=== PATIENT | male | born 1960 | race Caucasian/White ===

== ENCOUNTER → 2024-12-02 | Outpatient (CLI) | payer BC, SELFPAY ==
[2024-12-02 09:38] LABS: Collection Type, Urine Clean Catch
[2024-12-02 10:25] LABS: Basophils % (Auto) 0 % (0-2.5); Eosinophils # (Auto) 0.1 Thou/mm3 (0.0-0.5); Eosinophils % (Auto) 2 % (0-10); Hematocrit 44.8 % (41.0-53.0); Hemoglobin 14.6 g/dL (13.5-16.0); Immature Granulocytes % (Auto) 0 % (0-0); Immature Granulocytes Auto 0.01 Thou/mm3 (0.00-0.00); Lymphocytes # (Auto) 1.1 Thou/mm3 (1.0-4.8); Lymphocytes % (Auto) 17 % (10-50); Mean Corpuscular HGB Conc 32.6 g/dl (31.0-37.0); Mean Corpuscular Hemoglobin 29.1 pg (25.0-35.0); Mean Corpuscular Volume 89 fL (80-100); Monocytes # (Auto) 0.7 Thou/mm3 (0.0-0.8); Monocytes % (Auto) 12 % (0-12); Neutrophils # (Auto) 4.2 Thou/mm3 (1.8-7.7); Neutrophils % (Auto) 68 % (37-80); Nucleated Red Blood Cell % 0 /100 WBC (0); Platelet Count 183 Thou/mm3 (140-440); RDW Standard Deviation 44.6 fL (35.1-43.9); Red Blood Count 5.02 Miln/mm3 (4.50-5.90); White Blood Count 6.1 Thou/mm3 (3.8-10.6)
[2024-12-02 10:32] LABS: Bilirubin,Urine Negative (Negative); Blood,Urine Negative (Negative); Clarity,Urine Clear (Clear/Hazy); Color,Urine Lt-Yellow (Lt Yel-Yel); Glucose, Urine Negative (Negative); Hyaline Casts,Urine < 1 /hpf (0-1); Ketones,Urine Negative (Negative); Leukocyte Esterase,Urine Negative (Negative); Nitrite,Urine Negative (Negative); PH,Urine 6.5 (5.0-7.0); Protein,Urine Negative (Neg - Trace); RBC,Urine 2 /hpf (0-3); Specific Gravity,Urine 1.012 (1.001-1.035); Squamous Epithelial Cell,Urine < 1 /hpf (0-5); Urobilinogen,Urine Negative mg/dL (0.0-1.0); WBC,Urine < 1 /hpf (0-5)
[2024-12-02 10:39] LABS: Glucose Estimated Average 100 mg/dL (80-131); Hemoglobin A1C 5.1 % Hgb (4.8-6.0)
[2024-12-02 10:51] LABS: Prostate Specific Antigen 0.67 ng/mL (0-4.00)
[2024-12-02 10:54] LABS: Alanine Aminotransferase 19 U/L (10-49); Albumin, Serum 4.5 gm/dL (3.4-4.8); Albumin/Globulin Ratio 1.8 (1.2-2.2); Alkaline Phosphatase 79 U/L (46-116); Anion Gap 7 (7-16); Aspartate Amino Transferase 24 U/L (0-34); BUN/Creatinine Ratio 13 Ratio (12-20); Bilirubin,Total 0.9 mg/dL (0.3-1.2); Blood Urea Nitrogen 17 mg/dL (9-23); Calcium 9.1 mg/dL (8.3-10.6); Calcium (Corrected) 9.1 mg/dL (8.5-10.1); Carbon Dioxide 27.9 mMol/L (20.0-31.0); Cardiac Risk Estimate 2.6 RATIO (4.0-6.7); Chloride 104 mMol/L (98-107); Cholesterol 119 mg/dL (132-200); Creatinine (Component) 1.3 mg/dL (0.6-1.3); Globulin 2.5 gm/dL (2.3-3.5); Glucose 90 mg/dL (74-106); HDL Cholesterol 46 mg/dL (40-60); LDL Cholesterol,Calculated 64 mg/dL (0-130); Osmolality,Calculated 279 (275-295); Potassium 4.7 mMol/L (3.4-5.1); Sodium 139 mMol/L (136-145); Thyroid Stimulating Hormone 2.01 uIU/mL (0.55-4.78); Triglycerides 45 mg/dL (30-150); Uric Acid 5.1 mg/dL (3.7-9.2); eGFR > 60 See Note
[2024-12-02 10:56] LABS: Vitamin B12 451 pg/mL (211-911); Vitamin D 25 Hydroxy Total 33.3 ng/mL (7.3-40.2)
== END | disposition home or self-care (01) ==
PROVIDERS: PCP Internal Medicine; Referring Provider Internal Medicine; Visit Provider Internal Medicine
DX: Z00.00 Encounter for general adult medical examination without abnormal findings (principal); I10 Essential (primary) hypertension; E78.5 Hyperlipidemia, unspecified; I48.91 Unspecified atrial fibrillation
CPT/HCPCS: 36415; 80053; 80061; 81001; 82306; 82607; 83036; 84153; 84443; 84550; 85025

== ENCOUNTER → 2025-04-26 | Outpatient (CLI) | payer BC, SELFPAY ==
[2025-04-26 10:39] LABS: Alanine Aminotransferase 19 U/L (10-49); Albumin, Serum 4.2 gm/dL (3.4-4.8); Albumin/Globulin Ratio 1.7 (1.2-2.2); Alkaline Phosphatase 78 U/L (46-116); Anion Gap 8 (7-16); Aspartate Amino Transferase 24 U/L (0-34); BUN/Creatinine Ratio 13 Ratio (12-20); Bilirubin,Total 1.1 mg/dL (0.3-1.2); Blood Urea Nitrogen 17 mg/dL (9-23); Calcium 8.9 mg/dL (8.3-10.6); Calcium (Corrected) 8.9 mg/dL (8.5-10.1); Carbon Dioxide 29.2 mMol/L (20.0-31.0); Cardiac Risk Estimate 2.7 RATIO (4.0-6.7); Chloride 108 mMol/L (98-107); Cholesterol 117 mg/dL (132-200); Creatinine (Component) 1.3 mg/dL (0.6-1.3); Globulin 2.5 gm/dL (2.3-3.5); Glucose 97 mg/dL (74-106); HDL Cholesterol 43 mg/dL (40-60); LDL Cholesterol,Calculated 63 mg/dL (0-130); Osmolality,Calculated 290 (275-295); Potassium 5.8 mMol/L (3.4-5.1); Sodium 145 mMol/L (136-145); Total Protein 6.7 gm/dL (5.7-8.2); Triglycerides 56 mg/dL (30-150); eGFR > 60 See Note
== END | disposition home or self-care (01) ==
LOC: COPL 09:30
PROVIDERS: PCP Internal Medicine; Referring Provider Internal Medicine; Visit Provider Internal Medicine
DX: I10 Essential (primary) hypertension (principal); E78.5 Hyperlipidemia, unspecified
CPT/HCPCS: 36415; 80053; 80061

== ENCOUNTER → 2025-05-08 | Outpatient (CLI) | payer BC, SELFPAY ==
[2025-05-08 10:38] LABS: Albumin, Serum 3.9 gm/dL (3.4-4.8); Anion Gap 9 (7-16); BUN/Creatinine Ratio 13 Ratio (12-20); Blood Urea Nitrogen 15 mg/dL (9-23); Calcium 8.6 mg/dL (8.3-10.6); Calcium (Corrected) 8.7 mg/dL (8.5-10.1); Carbon Dioxide 26.6 mMol/L (20.0-31.0); Chloride 105 mMol/L (98-107); Creatinine (Component) 1.2 mg/dL (0.6-1.3); Glucose 103 mg/dL (74-106); Osmolality,Calculated 282 (275-295); Phosphorous 2.3 mg/dL (2.4-5.1); Potassium 4.5 mMol/L (3.4-5.1); Sodium 141 mMol/L (136-145); eGFR > 60 See Note
== END | disposition home or self-care (01) ==
LOC: COPL 09:15
PROVIDERS: PCP Internal Medicine; Referring Provider Internal Medicine; Visit Provider Internal Medicine
DX: I10 Essential (primary) hypertension (principal)
CPT/HCPCS: 36415; 80069

== ENCOUNTER 2025-08-31 22:57 | Inpatient (IN) | payer BC, SELFPAY ==
[2025-08-31 22:58] VITALS: BMI 39.0
--- NOTE | 2025-08-31 23:05 | PC.NURSE ---
PT BROUGHT TO ER BY THROUGH IN FRONT OF ER, TRIAGE NURSE BROUGHT PT TO ROOM 3 RIGHT AWAY BECAUSE HIS HR IS LOW. NO C/O SOB, NO C/O CP, NO DIZZINESS, PT IS BEEN TAKING METOPROLOL.
--- NOTE | 2025-08-31 23:05 | EKG_ITS ---
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[id number] Requested By: ED Temporary Provider Order Number: [id number] Reading MD: ED Temporary Provider Measurements Intervals [place] Rate: 38 P: 8 [place]: 226 QRS: 15 QRSD: 107 T: 50 QT: 530 QTc: 422 Interpretive Statements SINUS BRADYCARDIA WITH FIRST DEGREE AV BLOCK WITH OCCASIONAL SUPRAVENTRICULAR PREMATURE COMPLEXES INCOMPLETE RIGHT BUNDLE BRANCH BLOCK [90+ ms QRS DURATION, TERMINAL R IN V1/V2, 40+ ms S IN I/aVL/V4/V5/V6] MINIMAL ST DEPRESSION [0.025+ mV ST DEPRESSION] CRITICAL TEST RESULT Compared to ECG 02/28/2024 13:37:35 First degree AV block now present Incomplete right bundle-branch block now present ST (T wave) deviation now present Sinus rhythm no longer present Intraventricular conduction delay no longer present /store/S0/[id number].pdf
[2025-08-31 23:08] VITALS: BP 135/58; PULSE 44; RESP 17; O2SAT 99
--- NOTE | 2025-08-31 23:24 | PD.EDARRY ---
ED Arrhythmia Palp. RME/HPI General Chief Complaint: Arrhythmia/Palpitations Stated Complaint: BRADYCARDIA Time Seen by Provider: 08/31/25 23:12 Arrival date/time: 08/31/25 22:57 Limitations: no limitations RME / HPI RME / HPI narrative: Dr. Mclean's Main ED Evaluation: 65yo male with a history of aFib presents to the ED for a chief complaint of low heart rate x 1999. Patient states he started feeling lightheaded at 1999, reporting he checked his HR and was noted to be in the 30s. Patient denies any chest pain, shortness of breath, cough, fever, chills, or any other associated symptoms. Patient takes metoprolol and recently started taking atenolol. Seed Analyst: Porfirio Related Data Home Medications ?Medication ?Instructions ?Recorded ?Confirmed metoprolol succinate 25 mg 25 mg PO QDAY 04/30/20 10/27/22 tablet,extended release 24 hr amiodarone 200 mg tablet 200 mg PO QDAY 07/04/21 10/27/22 furosemide 40 mg tablet 1 tab PO QDAY 06/23/22 10/27/22 peg 3350-electrolytes 236 240 ml PO Q10M 09/17/22 10/27/22 gram-22.74 gram-6.74 gram-5.86 gram solution (Golytely) Previous Rx's ?Medication ?Instructions ?Recorded apixaban 5 mg tablet (Eliquis) 5 mg PO BID #90 tabs 07/09/21 amoxicillin 875 mg-potassium 1 tab PO BID #14 tabs 01/10/23 clavulanate 125 mg tablet doxycycline hyclate 100 mg capsule 100 mg PO BID #14 caps 01/10/23 Allergies Allergy/AdvReac Type Severity Reaction Status Date / Time No Known Allergies Allergy Verified 08/31/25 23:00 Review of Systems Review of Systems Systems Reviewed: All systems reviewed, normal except as documented Past Medical History Past Medical History NEUROLOGIC: Negative Neurological Disorders, Cerebrovascular Accident, Seizures or Migraine CARDIAC: Positive Cardiac Disorders (Pt. had a ablasion done a few years ago, pericardium removed 2000.), Cardiac Arrhythmia, Atrial Fibrillation, Congestive Heart Failure, Cardiomyopathy, Edema, Pericarditis and Deep Vein Thrombosis; Negative Myocardial Infarction, Angina, Heart Murmur, Coronary Artery Disease, Atherosclerotic Heart Disease, Peripheral Vascular Disease, Hypercholesterolemia, Aneurysm, Congenital Heart Disease, Valvular Heart Disease, Rheumatic Fever, Cellulitis, Hypertension, Hypotension or Varicose Veins RESPIRATORY: Negative Chronic Obstructive Pulmonary Disease (COPD), Asthma or Sleep Apnea GASTROINTESTINAL: Positive Gastrointestinal Disorders and Hemorrhoids; Negative Hepatitis GENITOURINARY: Negative Genitourinary Disorders or Renal Disease REPRODUCTIVE: Negative Testicular Cancer MUSCULOSKELETAL: Negative Musculoskeletal Disorders or Carpal Tunnel Syndrome ENDOCRINE: Negative Endocrine Disorders, Diabetes Mellitus Type 1, Diabetes Mellitus Type 2, Hypoglycemia, Delmont's Syndrome, Vikas's Disease, Hyperthyroidism, Hypothyroidism, Parathyroid Disease, Pituitary Disease, Systemic Lupus Erythematosus, Syndrome of Inappropriate Antidiuretic Hormone (SIADH), Adrenal Disease or Graves' Disease HEMATOLOGIC: Positive Blood Disorders and Anemia; Negative Sickle Cell Disease OTHER HISTORY: Positive Hospitalization and Chicken Pox; Negative Autoimmune Disease, Down Syndrome, Developmental Delay, Shingles, Falls, Blood Transfusions, Anesthesia Reactions, Organ Transplant, MRSA, VRSA, Vancomycin-Resistant Enterococci, Cancer or Testicular Cancer Family History FAMILY HISTORY: Positive Family Cardiac Disorders and Family Surgery; Negative Family Psychiatric Problems, Family Respiratory Disorders, Family Gastrointestinal Problems, Family Cancer or Family Anesthesia Reaction Surgical History SURGICAL: Positive Cardiac Surgery and Open Heart Surgery; Negative Pacemaker, Endocrine Surgery, Thyroidectomy, Ear Surgery, Abdominal Surgery, Nephrectomy, Joint Replacement, Amputation, Open Reduction Internal Fixation, Arthroscopy, Neurologic Surgery, Brain Shunt, Vasectomy or Organ Transplant Social History SMOKING STATUS: Never smoker SECOND HAND EXPOSURE: No SUBSTANCE USE: does not use 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 Exam General Limitations: Present no limitations General appearance: Present alert and in no apparent distress Head Head exam: Present atraumatic Eye Eye exam: Present normal appearance, PERRL and EOMI ENT ENT exam: Present normal exam, normal oropharynx and mucous membranes moist Neck Neck exam: Present normal inspection, full ROM and trachea midline Chest Chest inspection: Present normal inspection, symmetric chest wall rise and other (well-healed midline chest scar) Respiratory Respiratory exam: Present normal lung sounds bilaterally Cardiovascular Cardiovascular exam: Present normal rhythm, bradycardia and normal heart sounds Abdominal Exam Abdominal exam: Present soft Extremities Exam Extremities exam: Present full ROM and other (2+ pitting edema up to the bilateral knees) Back Exam Back exam: Present normal inspection and full ROM Neurological Exam Neurological exam: Present alert, oriented X3 and CN II-XII intact Psychiatric Psychiatric exam: Present normal affect and normal mood Skin Skin exam: Present warm, dry, intact and normal color Course Quality Measures none Orders Category Date Time Status EKG (ED ONLY) *Do not use* NOW Care 08/31/25 23:05 Completed EKG (ED Only) Stat Exams 08/31/25 23:05 Draft BNP [B-Type Natriuretic Peptide] Stat Lab 08/31/25 23:10 Ordered CBC Stat Lab 08/31/25 23:10 Ordered Comprehensive Metabolic Panel Stat Lab 08/31/25 23:10 Ordered Troponin I Stat Lab 08/31/25 23:10 Ordered Vital Signs Vital signs: Vital Signs Pulse Rate 44 L 08/31/25 23:08 Respiratory Rate 17 08/31/25 23:08 Blood Pressure 135/58 H 08/31/25 23:08 Pulse Oximetry (%) 99 08/31/25 23:08 Oxygen Delivery Method Room Air 08/31/25 23:08 Arrhythmia/Palpitations MDM Narrative MDM Narrative:: Scribe Attestation: 08/31/25 Kinga Long am scribing for and in the presence of Dr. Mclean. 65-year-old male presenting to the emergency department on multiple meds to include amiodarone, Eliquis, beta-aparna which is a new medication that he started few weeks ago, spironolactone, and Lasix presenting with lightheadedness and noted that his heart rate was low at home in the 40s to 50s. The patient states that he has no chest pain and did not pass out. He did not overdose on any medications. The patient always has lower extremity swelling but is slightly improved from his baseline. Patient is meetly placed to a bed. EKG and rhythm strip is obtained. The patient is noted to be in first-degree heart block with a heart rate between 38 and 50. Otherwise the patient is not pale and not diaphoretic. He has got 2+ pitting edema bilateral lower extremities. Review of his medications is immediately done and I suspect that he possibly has bradycardia from multiple medications but is primarily from his atenolol since this is a new medication. Patient is noted to be in sinus bradycardia without any blocks. Patient also has bilateral lower extremity swelling but review of his labs does not show that he has got hide her kalemia and otherwise his H&H is stable at 12/38. Platelets are normal. Other electrolytes are normal BMP shows 136 which is slightly above normal but not worried about congestive heart failure at this time. His lungs are clear. Chest x-ray is reviewed interpreted by me. 0007-glucagon and Zofran is ordered. No change with glucagon but only 3 mg was given patient did have significant amount of nausea. At this time the patient otherwise is not having altered mental status, hypotension, and is not hemodynamically unstable and therefore no dopamine and or other temporary pacemaking is needed at this time. Suspect likely from multi medication causing his sinus bradycardia. The patient is not febrile and doubt sepsis. TSH is ordered to rule out thyroid disease. Recent blood pressure is 122/62, afebrile, 96% on room air. Potassium is 3.5. Patient data External records reviewed:: [facility] previous records (Per chart review, patient was seen here on 02/28/24 for chest pain.) Clinical information provided by:: patient Social determinants that could affect healthcare access:: none Patient has the following chronic illnesses:: aFib How is presenting disease/condition affected by chronic disease/condition?: uneffected by Evaluation data The following diagnostics were reviewed and interpreted by me:: lab results, radiology exam(s) and EKG tracing(s) Lab and/or radiology exams considered but not ordered:: none Interpretation Summary: CBC normal, CMP normal, Troponin normal, BNP 136. CXR shows cardiomegaly, CHF, increased vascular markings, right pleural effusion is better today compared to previous CXR done in 2021, according to my interpretation. EKG done at 2309, sinus bradycardia, rate of 38, 1st degree AV block, RBBB, MN interval: 226, according to my interpretation. Repeat EKG done at 0208, sinus bradycardia, rate of 37, MN: 221, QTc: 412, 1st degree AV block, RBBB, according to my interpretation. Medications / Prescriptions Medications or Prescriptions considered but not ordered:: none Medication administrations:: Glucagon 3mg IV, Zofran, Atropine 1mg IV Consultations Consultation(s) initiated? (list below): Yes Consultation #1 (Physician, Specialty, Details): Discussed case with the resident physician, attending Dr. Turcios from Hospitalist service regarding admission. Discussed patients ED course, exam findings, labs, and radiology results. The Hospitalist agrees to accept the patient for admission. Time: 02:18 Diagnosis Differential diagnosis arrhythmia/palpitations: other (sinus bradycardia, medication-induced bradycardia, heart block, IL, hyperkalemia, infection) Most likely diagnosis given after review of the tests above:: see clinical impression below Admission Indicated Admission indicated?: indicated Admission Request Was there a request for admission?: Yes Admission Attestation Admission request attestation: Discussed case with [] from Hospitalist service regarding admission. Discussed patients ED course, exam findings, labs, and radiology results. The Hospitalist [agrees,declines] to accept the patient for admission. Disposition Plan Disposition Plan: Admit Critical Care Time Critical Care Time Critical Care Time: Yes Total Critical Care Time (min.): 40 Attestation: The high probability of sudden, clinically significant deterioration in the patient?s condition required the highest level of my preparedness to intervene urgently. The services I provided to this patient were to treat and/or prevent clinically significant deterioration. Services included the following: chart data review, reviewing nursing notes and/or old charts, documentation time, service loss control consultant collaboration regarding findings and treatment options, medication orders and management, direct patient care, vital sign assessments and ordering, interpreting and reviewing diagnostic studies and lab tests. Aggregate critical care time includes only time during which I was engaged in work directly related to the patient?s care, as described above, whether at bedside or elsewhere in the Emergency Department. It did not include time spent performing other reported procedures or the services of residents, students, nurses or physician assistants. Discharge Plan Plan Patient Disposition: Admit Acute Care w/in Hospital Patient condition on transfer: Stable Prescriptions/Referrals Prescriptions/Med Rec: No Action peg 3350-electrolytes [Golytely] 236-22.74-6.74 -5.86 gram recon soln 240 ml PO Q10M Rx Instructions: until fecal effluent is clear furosemide 40 mg tablet 1 tab PO QDAY Patient Comments: TAKE 1 TABLET BY MOUTH EVERY DAY metoprolol succinate 25 mg Tablet Extended Release 24 Hr 25 mg PO QDAY amiodarone 200 mg Tablet 200 mg PO QDAY Eliquis 5 mg tablet 5 mg PO BID Qty: 90 0RF Rx Instructions: 10 mg twice a day for 7 days and then 5 mg tablet twice a day. Please see your primary care for refill. doxycycline hyclate 100 mg capsule 100 mg PO BID Qty: 14 0RF amoxicillin-pot clavulanate 875-125 mg tablet 1 tab PO BID Qty: 14 0RF Problem List Clinical Impression: Dizziness, Symptomatic bradycardia Patient/Caregiver Discharge Instructions Print Language: Frisian Stand Alone Forms: [employer]son Award Info., Patient Portal Info Letter
[2025-08-31 23:29] LABS: Basophils # (Auto) 0.0 Thou/mm3 (0.0-0.2); Basophils % (Auto) 0 % (0-2.5); Eosinophils # (Auto) 0.1 Thou/mm3 (0.0-0.5); Eosinophils % (Auto) 2 % (0-10); Hematocrit 38.7 % (41.0-53.0); Hemoglobin 12.3 g/dL (13.5-16.0); Immature Granulocytes Auto 0.01 Thou/mm3 (0.00-0.00); Lymphocytes # (Auto) 1.7 Thou/mm3 (1.0-4.8); Lymphocytes % (Auto) 19 % (10-50); Mean Corpuscular HGB Conc 31.8 g/dl (31.0-37.0); Mean Corpuscular Hemoglobin 28.2 pg (25.0-35.0); Mean Corpuscular Volume 89 fL (80-100); Monocytes # (Auto) 1.5 Thou/mm3 (0.0-0.8); Monocytes % (Auto) 18 % (0-12); Neutrophils # (Auto) 5.4 Thou/mm3 (1.8-7.7); Neutrophils % (Auto) 61 % (37-80); Nucleated Red Blood Cell # 0.00 Thou/mm3 (0.00-0.00); Nucleated Red Blood Cell % 0 /100 WBC (0); Platelet Count 189 Thou/mm3 (140-440); RDW Standard Deviation 43.8 fL (35.1-43.9); Red Blood Count 4.36 Miln/mm3 (4.50-5.90); White Blood Count 8.8 Thou/mm3 (3.8-10.6)
--- NOTE | 2025-08-31 23:29 | XR_ITS ---
Examination: AP chest single view Technique one AP portable upright chest single view Date and time: August 31, 2025 11:36 PM, comparison February 28, 2024 Indications: Chest pain lightheadedness atrial fibrillation Findings: Mild to moderate CHF Moderate enlargement cardiac contour, prominent vascular congestion with perihilar edema Again noted significant pleural disease right base Prominent osteopenia Impression: Mild to moderate CHF
[2025-08-31 23:31] VITALS: PULSE 44
[2025-08-31 23:34] VITALS: TEMP 37.3
[2025-08-31 23:49] LABS: B-Type Natriuretic Peptide 136 pg/mL (0-100)
[2025-08-31 23:51] LABS: Alanine Aminotransferase 22 U/L (10-49); Albumin, Serum 4.0 gm/dL (3.4-4.8); Albumin/Globulin Ratio 1.7 (1.2-2.2); Alkaline Phosphatase 79 U/L (46-116); Anion Gap 10 (7-16); Aspartate Amino Transferase 31 U/L (0-34); BUN/Creatinine Ratio 12 Ratio (12-20); Bilirubin,Total 0.6 mg/dL (0.3-1.2); Blood Urea Nitrogen 16 mg/dL (9-23); Calcium 9.0 mg/dL (8.3-10.6); Calcium (Corrected) 9.0 mg/dL (8.5-10.1); Carbon Dioxide 27.3 mMol/L (20.0-31.0); Chloride 107 mMol/L (98-107); Creatinine (Component) 1.3 mg/dL (0.6-1.3); Estimated Creatinine Clearance 77.9 mL/min (>60); Globulin 2.4 gm/dL (2.3-3.5); Glucose 106 mg/dL (74-106); Osmolality,Calculated 288 (275-295); Potassium 3.5 mMol/L (3.4-5.1); Sodium 144 mMol/L (136-145); Total Protein 6.4 gm/dL (5.7-8.2); Troponin I < 0.020 ng/mL (0.0-0.045); eGFR > 60 See Note
[2025-09-01] VITALS (12 sets, daily range): BP systolic 103–141; BP diastolic 41–69; PULSE 33–57; RESP 12–21; TEMP 36.1–36.8; O2SAT 95–98
[2025-09-01] MEDS: ONDANSETRON INJ 2 MG/ML INJ 2 ML 4 MG IVP (00:13)
--- NOTE | 2025-09-01 00:13 | PC.NURSE ---
DR. PENN ORDER ZAKOGAMendy TO GIVE.
[2025-09-01] MEDS: GLUCAGON INJ 1 MG VIAL 3 MG IVP (00:17)
--- NOTE | 2025-09-01 01:10 | PC.NURSE ---
DR. PENN NOTIFIED THAT GLUCOGAN NOT WORKING, PT HR STILL 31,NEW ORDER GIVEN AND CARRIED OUT.
[2025-09-01] MEDS: ATROPINE SULF INJ 0.1 MG/ML SYR 10 ML 1 MG IV (01:39)
--- NOTE | 2025-09-01 02:00 | PC.NURSE ---
INFORMED DR. LORENZO ABOUT ATROPINE DID NOT WORK, ORDER TO DO REPEAT EKG.
--- NOTE | 2025-09-01 02:03 | EKG_ITS ---
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[id number] Requested By: Alva Rodriguez Order Number: [id number] Reading MD: Alva Rodriguez Measurements Intervals [place] Rate: 43 P: [place]: QRS: 26 QRSD: 93 T: 55 QT: 518 QTc: 442 Interpretive Statements ATRIAL FIBRILLATION WITH SLOW VENTRICULAR RESPONSE POSSIBLE RIGHT VENTRICULAR CONDUCTION DELAY [RSR (QR) IN V1/V2] NONSPECIFIC T-WAVE ABNORMALITY PROLONGED QT INTERVAL Compared to ECG 08/31/2025 23:09:22 T-wave abnormality now present Prolonged QT interval now present Sinus bradycardia no longer present First degree AV block no longer present Incomplete right bundle-branch block no longer present ST (T wave) deviation no longer present /store/S0/[id number].pdf
[2025-09-01 02:48] LABS: Thyroid Stimulating Hormone 0.02 uIU/mL (0.55-4.78)
--- NOTE | 2025-09-01 02:54 | PD.RESHP ---
Documentation for date of: 09/01/25 [facility] History of Present Illness Chief complaint: Bradycardia History of present illness: 65-year-old male with past medical history of atrial fibrillation status post ablation, pericardiectomy, history of left lower extremity DVT on Eliquis who presented to the ED due to symptomatic bradycardia. Patient was sitting watching TV when he started feeling lightheaded, he ignored it for a couple hours but then he continued to feel lightheaded with some tunnel vision, nausea and checked his heart rate found to be in the low 30s. Patient states that his heart rate usually is around the 110s?115 was started on atenolol 50 mg a few months ago stated it did not affect him much and his heart rate continued to be in the 110s. He stopped the medication for about a week did not notice anything new. Restarted his atenolol again and then suddenly noticed his heart rate dropping down to the 30s today with associated lightheadedness, nausea and tunnel vision as well as some chest pressure and tightness. He does state he recently had echocardiogram and stress test done which showed normal ejection fraction and normal coronaries per the patient. At this time patient denies any fever, chills, shortness of breath, chest pain, chest pressure, abdominal pain, changes in urinary or bowel habits. Patient will be admitted for symptomatic sinus bradycardia. ED course: BP 135/58, HR 44, RR 17, saturating 99% on room air, labs show hemoglobin 12.3, CHEM panel unremarkable troponin is negative, BNP 136. First EKG shows sinus bradycardia with first-degree AV block. Subsequent EKGs show atrial fibrillation with slow ventricular response. Chest x-ray shows some heart failure pattern. In the ED patient received glucagon, atropine PMHx: As above SX Hx: Ablation, pericardiectomy, Social Hx: Denies alcohol, denies cigarette use, denies other substances including THC FH X: Unknown Review of Systems Review of Systems Systems Reviewed: All systems reviewed, normal except as documented Exam Vital Signs Temp Pulse Resp BP Pulse Ox O2 Del Method 99.1 F 36 L 17 123/62 96 Room Air 08/31/25 23:34 09/01/25 02:05 09/01/25 02:05 09/01/25 02:05 09/01/25 02:05 09/01/25 02:05 Narrative Exam Physical Exam GENERAL: NAD, AAOx3 HEENT: Moist mucosa. Eyes open, symmetrical, & clear CARDIO: Heart RRR, no obvious murmurs PULM: No noted coughing/dyspnea CTA B/L, no R/W/R GI: Abdomen soft, nondistended, no pain on palpation. BSx4 SKIN/MSK/EXT: Bilateral lower extremity swelling more prominent on the left lower extremity, bilateral lower extremity redness, no pain on palpation. Pedal pulses present B/L NEURO: AAOx3, no focal neuro deficits, able to move all 4 extremities Results: Labs 09/01/25 04:25 09/01/25 04:25 Labs: Short CBC 08/31/25 Range/Units 23:20 WBC 8.8 (3.8-10.6) Thou/mm3 Hgb 12.3 L (13.5-16.0) g/dL Hct 38.7 L (41.0-53.0) % Plt Count 189 (140-440) Thou/mm3 BMP 08/31/25 23:20 Sodium 144 Potassium 3.5 Chloride 107 Carbon Dioxide 27.3 BUN 16 Creatinine 1.3 Glucose 106 Calcium 9.0 Cardiac Enzymes 08/31/25 Range/Units 23:20 Troponin I < 0.020 (0.0-0.045) ng/mL Liver Function 08/31/25 Range/Units 23:20 Total Bilirubin 0.6 (0.3-1.2) mg/dL AST 31 (0-34) U/L ALT 22 (10-49) U/L Alkaline Phosphatase 79 (46-116) U/L Albumin 4.0 (3.4-4.8) gm/dL Quality Measures Quality Measures none Medications Home Medications and Allergies Home Medications ?Medication ?Instructions ?Recorded ?Confirmed ?Type metoprolol succinate 25 mg 25 mg PO QDAY 04/30/20 10/27/22 History tablet,extended release 24 hr amiodarone 200 mg tablet 200 mg PO QDAY 07/04/21 10/27/22 History furosemide 40 mg tablet 1 tab PO QDAY 06/23/22 10/27/22 History peg 3350-electrolytes 236 240 ml PO Q10M 09/17/22 10/27/22 History gram-22.74 gram-6.74 gram-5.86 gram solution (Golytely) Allergies Allergy/AdvReac Type Severity Reaction Status Date / Time No Known Allergies Allergy Verified 08/31/25 23:00 Visit Medications Acetaminophen (Acetaminophen 325 Mg Tablet) 650 mg PO Q6H PRN PRN Reason: Fever >100.4 Stop: 10/01/25 02:45 Acetaminophen (Acetaminophen 325 Mg Tablet) 650 mg PO Q6H PRN PRN Reason: PAIN SCALE 1-3 (mild Stop: 10/01/25 02:45 Ondansetron HCl (Ondansetron Inj 2 Mg/Ml Inj 2 Ml) 4 mg IVP Q6H PRN; Protocol PRN Reason: NAUSEA OR VOMITING Stop: 10/01/25 02:45 Sennosides (Senna Tablet) 1 tab PO QDAY PRN; Protocol PRN Reason: constipation Stop: 10/01/25 02:45 Discontinued Medications Atropine Sulfate (Atropine Sulf Inj 0.1 Mg/Ml Syr 10 Ml) 0.5 mg IV X1 ONE Stop: 08/31/25 23:55 Last Admin: 09/01/25 00:04 Dose: Not Given Atropine Sulfate (Atropine Sulf Inj 1 Mg/Ml Vial) 1 mg IV X1 ONE Stop: 09/01/25 01:11 Last Admin: 09/01/25 01:29 Dose: Not Given Atropine Sulfate (Atropine Sulf Inj 0.1 Mg/Ml Syr 10 Ml) 1 mg IV X1 ONE Stop: 09/01/25 01:27 Last Admin: 09/01/25 01:39 Dose: 1 mg Glucagon (Glucagon Inj 1 Mg Vial) 3 mg IVP X1 ONE Stop: 09/01/25 00:03 Last Admin: 09/01/25 00:17 Dose: 3 mg Dopamine HCl/Dextrose (Intropin In D5w Ivpb) 400 mg in 250 mls @ 23.814 mls/hr IV .[id number] BARB; Protocol Stop: 10/01/25 02:01 Last Admin: 09/01/25 02:07 Dose: Not Given Ondansetron HCl (Ondansetron Inj 2 Mg/Ml Inj 2 Ml) 4 mg IVP X1 ONE; Protocol Stop: 09/01/25 00:03 Last Admin: 09/01/25 00:13 Dose: 4 mg Assessment & Plan Plan 65-year-old male with past medical history as stated above who presented to the ED due to low heart rate with associated lightheadedness, tunnel vision, nausea. Admitted for symptomatic bradycardia. #Symptomatic bradycardia #Sinus Bradycardia #History of left lower extremity DVT #? HFpEF #Hyperkalemia #Hx of A.Fibrillation s/p ablation Patient presented with heart rate in the 30s, lightheadedness, nausea, tunnel vision, denies any loss of consciousness As noted on EKGs first 1 showing sinus bradycardia with first-degree heart block, second EKG shows atrial fibrillation with slow ventricular response, negative troponins, mildly elevated BNP Patient states he had cardiac workup done including echocardiogram and stress test both found to be within normal limits. Patient does have bilateral lower extremity swelling up to the midshin takes Lasix and spironolactone at home In the ED patient received glucagon and atropine, current heart rate 40-50 bpm ? Hold beta-blockers at this time ? Hold amiodarone in the setting of bradycardia in the low 30s ? Atropine 1 mg as needed, if symptomatic with heart rate less than 40 ? Continue Lasix as taken at home ? Hold home Spirinolactone for Hyperkalemia ? Monitor telemetry ? Keep K> 4, Mg> 2 ? Continue Eliquis 5 mg daily as taken at home ? Consult cardiology, appreciate recs Case discussed with my attending Dr. Karolina Teague MD PGY-2 Disclaimer: Despite multiple revisions, due to the dictation software being used, the document bellow may not be free of grammatical errors including phonetic/typographic errors. However, this does not deter from our commitment to providing health care in the patient's best interest in mind. Attending Provider Attestation/Addendum After examination of the patient and review of the clinical data I feel that this patient needs admission to the hospital for further treatment/evaluation. Plan of care discussed with patient and is in agreement. I Mae Turcios MD, attest that I was physically present for llanos portions of evaluation, and examined patient, labs and imagings and plan of care were discussed with IM residents team, and I agree with the findings and plans documented above.
[2025-09-01 04:31] LABS: Basophils # (Auto) 0.0 Thou/mm3 (0.0-0.2); Basophils % (Auto) 0 % (0-2.5); Eosinophils # (Auto) 0.1 Thou/mm3 (0.0-0.5); Eosinophils % (Auto) 1 % (0-10); Hematocrit 39.6 % (41.0-53.0); Hemoglobin 12.2 g/dL (13.5-16.0); Immature Granulocytes Auto 0.02 Thou/mm3 (0.00-0.00); Lymphocytes # (Auto) 1.2 Thou/mm3 (1.0-4.8); Lymphocytes % (Auto) 15 % (10-50); Mean Corpuscular HGB Conc 30.8 g/dl (31.0-37.0); Mean Corpuscular Hemoglobin 27.1 pg (25.0-35.0); Mean Corpuscular Volume 88 fL (80-100); Monocytes # (Auto) 1.3 Thou/mm3 (0.0-0.8); Monocytes % (Auto) 17 % (0-12); Neutrophils # (Auto) 5.1 Thou/mm3 (1.8-7.7); Neutrophils % (Auto) 67 % (37-80); Nucleated Red Blood Cell # 0.00 Thou/mm3 (0.00-0.00); Nucleated Red Blood Cell % 0 /100 WBC (0); Platelet Count 162 Thou/mm3 (140-440); RDW Standard Deviation 43.8 fL (35.1-43.9); Red Blood Count 4.50 Miln/mm3 (4.50-5.90); White Blood Count 7.7 Thou/mm3 (3.8-10.6)
[2025-09-01 04:48] LABS: Glucose Estimated Average 100 mg/dL (80-131); Hemoglobin A1C 5.1 % Hgb (4.8-6.0)
[2025-09-01 04:49] LABS: Alanine Aminotransferase 21 U/L (10-49); Albumin, Serum 3.7 gm/dL (3.4-4.8); Albumin/Globulin Ratio 1.7 (1.2-2.2); Alkaline Phosphatase 76 U/L (46-116); Anion Gap 7 (7-16); Aspartate Amino Transferase 28 U/L (0-34); BUN/Creatinine Ratio 13 Ratio (12-20); Bilirubin,Total 0.8 mg/dL (0.3-1.2); Blood Urea Nitrogen 17 mg/dL (9-23); Calcium 9.0 mg/dL (8.3-10.6); Calcium (Corrected) 9.2 mg/dL (8.5-10.1); Carbon Dioxide 30.9 mMol/L (20.0-31.0); Cardiac Risk Estimate 2.7 RATIO (4.0-6.7); Chloride 109 mMol/L (98-107); Cholesterol 89 mg/dL (132-200); Creatinine (Component) 1.3 mg/dL (0.6-1.3); Estimated Creatinine Clearance 77.9 mL/min (>60); Globulin 2.2 gm/dL (2.3-3.5); Glucose 104 mg/dL (74-106); HDL Cholesterol 33 mg/dL (40-60); LDL Cholesterol,Calculated 45 mg/dL (0-130); Magnesium 2.4 mg/dL (1.6-2.6); Osmolality,Calculated 293 (275-295); Potassium 5.2 mMol/L (3.4-5.1); Sodium 147 mMol/L (136-145); Total Protein 5.9 gm/dL (5.7-8.2); Triglycerides 53 mg/dL (30-150); eGFR > 60 See Note
--- NOTE | 2025-09-01 06:37 | PC.NURSE ---
REPORT RECEIVED FROM [facility].
--- NOTE | 2025-09-01 07:42 | ESPR_ITS ---
<Statement entered by Chester Crowley MD - 09/01/25 17:10> Patient was seen and evaluated at bedside this morning. No acute overnight events. Patient was admitted due to symptomatic bradycardia after taking atenolol, but since then patient's heart rate has still been in the 40s with good chronotropic response. Spoke with cardiology who stated that they we will monitor patient for the next few days. Patient at this time does not have any other symptoms and his dizziness has resolved. Holding atenolol and amiodarone for now, will keep atropine 1 mg as needed. Patient's TSH was 0.04 and his free T4 was 2.64, will continue to monitor for now and will recommend follow-up with primary care physician upon discharge with repeat TSH and free T4 in 4 weeks once current illness resolves. Note reviewed and agree with resident's care plan as documented except as noted above. Case disclosed with attending Dr. Harlan Crowley PGY2 Disclaimer: Even though this this note was dictated by speech recognition and even though it was carefully revised there may still be minor errors in milking machine mechanic due to voice recognition software. Documentation for date of: 09/01/25 Subjective Subjective Interval history: Overnight, no acute events per patient and nursing staff. Patient reports PMH of DVT (left lower extremity), HLD, pericardectomy (2000, reason unknown). Per patient, was placed on atenolol a few weeks ago; had no issues initially, but then had a BP drop, so he stopped atenolol. When restrated yesterday, felt weak, lightheaded; checked pulse, was 30, and came in. Had previous DVT, but no current clots per patient. Exam Vital Signs Temp Pulse Resp BP Pulse Ox O2 Del Method 98.3 F 43 L 18 125/69 95 Room Air 09/01/25 05:00 09/01/25 06:15 09/01/25 06:15 09/01/25 06:15 09/01/25 06:15 09/01/25 06:15 Narrative Exam General: A/O x3, no acute distress, well-nourished, well-developed Eyes: PERRL, EOMI. Anicteric, vision grossly intact. Ears: No ear pain, no ear discharge, Hearing grossly intact. Nose: No nasal discharge. Mouth/Throat: Moist mucous membranes, no redness, no lesions. No goiter. Neck: Neck supple, non-tender, no cervical lymphadenopathy. Lungs: Clear KAYA to auscultation and percussion, No accessory muscle use. Cardio: Normal S1/S2, irregular rhythm, no murmurs, no JVD or carotid bruits. Abdomen: Soft, non-tender, no palpable masses, peristalsis present, no guarding or rebound. Extremities: significant bilateral swelling to above knee (worse on L), pitting edema to knee bilaterally, non-tender, Skin: No rashes, no lesions, warm to touch. Neuro: No focal neurological deficits. Psych: Cooperative, appropriate mood and effect. Objective Labs 09/02/25 04:50 09/02/25 04:50 Labs: Laboratory Results - last 24 hr 08/31/25 09/01/25 23:20 04:25 WBC 8.8 7.7 RBC 4.36 L 4.50 Hgb 12.3 L 12.2 L Hct 38.7 L 39.6 L MCV 89 88 MCH 28.2 27.1 MCHC 31.8 30.8 L RDW Std Deviation 43.8 43.8 Plt Count 189 162 Neut % (Auto) 61 67 Lymph % (Auto) 19 15 [place] % (Auto) 18 H 17 H Eos % (Auto) 2 1 Baso % (Auto) 0 0 Neut # (Auto) 5.4 5.1 Lymph # (Auto) 1.7 1.2 [place] # (Auto) 1.5 H 1.3 H Eos # (Auto) 0.1 0.1 Baso # (Auto) 0.0 0.0 Immature Gran # (Auto) 0.01 H 0.02 H Absolute Nucleated RBC 0.00 0.00 Immature Gran % 0 0 Nucleated RBC % 0 0 Sodium 144 147 H Potassium 3.5 5.2 H D Chloride 107 109 H Carbon Dioxide 27.3 30.9 Anion Gap 10 7 BUN 16 17 Creatinine 1.3 1.3 Estim Creat Clear Calc 77.9 77.9 eGFR > 60 > 60 BUN/Creatinine Ratio 12 13 Glucose [address] Glu mg/dL 100 Hemoglobin A1c 5.1 Calculated Osmolality 288 293 Calcium 9.0 9.0 Corrected Calcium 9.0 9.2 Magnesium 2.4 Total Bilirubin 0.6 0.8 AST 31 28 ALT 22 21 Alkaline Phosphatase 79 76 Troponin I < 0.020 B-Natriuretic Peptide 136 H Total Protein 6.4 5.9 Albumin 4.0 3.7 Globulin 2.4 2.2 L Albumin/Globulin Ratio 1.7 1.7 Triglycerides 53 Cholesterol 89 L LDL Cholesterol, Calc 45 HDL Cholesterol 33 L Cholesterol/HDL Ratio 2.7 L TSH 0.02 L* Quality Measures Quality Measures none Assessment & Plan Assessment Current Active Medications: Generic Name Dose Route Start Last Admin Trade Name Freq PRN Reason Stop Dose Admin Acetaminophen 650 mg 09/01/25 02:46 Acetaminophen 325 Mg Tablet PO 10/01/25 02:45 Q6H PRN Fever >100.4 Acetaminophen 650 mg 09/01/25 02:46 Acetaminophen 325 Mg Tablet PO 10/01/25 02:45 Q6H PRN PAIN SCALE 1-3 (mild Apixaban 5 mg 09/01/25 09:00 Apixaban 2.5 Mg Tablet PO 09/22/25 08:59 DAILY BARB Atropine Sulfate 1 mg 09/01/25 04:04 Atropine Sulf Inj 0.1 Mg/Ml Syr 10 Ml IV Q1HR PRN BRADYCARDIA Furosemide 40 mg 09/01/25 09:00 Furosemide 40 Mg Tablet PO 10/01/25 08:59 QDAY BARB Ondansetron HCl 4 mg 09/01/25 02:46 Ondansetron Inj 2 Mg/Ml Inj 2 Ml IVP 10/01/25 02:45 Q6H PRN NAUSEA OR VOMITING Protocol Sennosides 1 tab 09/01/25 02:46 Senna Tablet PO 10/01/25 02:45 QDAY PRN constipation Protocol Plan 65-year-old male with past medical history of atrial fibrillation status post ablation, pericardiectomy, history of left lower extremity DVT on Eliquis, hyperlipidemia, who presented to the ED due to low heart rate with associated lightheadedness, tunnel vision, nausea. Admitted for symptomatic bradycardia. #Symptomatic bradycardia #Sinus Bradycardia #History of left lower extremity DVT #? HFpEF #Hyperkalemia #Hx of A.Fibrillation s/p ablation Patient presented with heart rate in the 30s, lightheadedness, nausea, tunnel vision, denies any loss of consciousness As noted on EKGs first 1 showing sinus bradycardia with first-degree heart block, second EKG shows atrial fibrillation with slow ventricular response, negative troponins, mildly elevated BNP Patient states he had cardiac workup done including echocardiogram and stress test both found to be within normal limits. Patient does have bilateral lower extremity swelling up to the midshin takes Lasix and spironolactone at home In the ED patient received glucagon and atropine, current heart rate 40-50 bpm Plan: ? Hold beta-blockers at this time ? Hold amiodarone in the setting of bradycardia in the low 30s ? Atropine 1 mg as needed, if symptomatic with heart rate less than 40 ? Continue Lasix as taken at home ? Hold home Spirinolactone for Hyperkalemia ? Monitor telemetry ? Keep K> 4, Mg> 2 ? Continue Eliquis 5 mg daily as taken at home ? Consult cardiology, appreciate recs #Hyperthyroid state TSH- 0.02; Free T4- 2.64 Plan: Will reassess on discharge once current illness resolves #Hyperlipidemia Plan: Continue home atorvastatin Health maintenance: Disposition: Admitted DVT prophylaxis: SCDs Diet: Diabetic low carbohydrate IV access: PIV CODE STATUS: Full code This case was discussed with my attending physician, Dr. Claros, and senior resident, Dr. Genao. Lio Mcgrath MD-PhD, PGY1 Attending Provider Attestation/Addendum I have examined the patient, reviewed labs and imaging findings, discussed the case with the resident(s), and reviewed entered orders. I agree with the plan of care as outlined in this note, with these additional summaries/recommendations: Patient and patient's son seen at bedside this morning. Patient admitted overnight for symptomatic bradycardia. Patient remains bradycardic this morning although reports improvement of dizziness lightheadedness. At its lowest heart rate reached 33 bpm and this morning heart rate trending in the 40s/low 50s. Multiple EKGs were obtained with 1 showing sinus bradycardia with first-degree AV block and additional EKG showing atrial fibrillation with slow ventricular response. Given that patient recently resumed home atenolol most likely bradycardia is secondary to medication induced versus sick sinus syndrome. Hold home atenolol and amiodarone for now. Continue home Eliquis for history of atrial fibrillation. In-house cardiology consulted, recommendations appreciated. TSH 0.02 and free T42.64 Suggestive of hyperthyroidism. Thyroid studies may be altered given patient's symptoms. Recommend repeating thyroid studies in 4 to 6 weeks and initiating hyperthyroid medicines if indicated. Patient and patient's son updated on the plan and in agreement. All questions answered to satisfaction. Please see residents note for additional details and management. Dr. Harlan MD
[2025-09-01 07:58] LABS: Free T4 (Free Thyroxine) 2.64 ng/dL (0.89-1.76)
[2025-09-01 08:31] LABS: Potassium 4.3 mMol/L (3.4-5.1)
--- NOTE | 2025-09-01 09:42 | PC.SS ---
Patient Redd Griffin is a 65 Year old male admitted for Wellbutrin OD. SS met with patient at bedside to discuss discharge plan and verify demographic information. Patient reports he lives at home with his life partner, Sophie Salazar who he reports is his surrogate decision maker, . Patient reports he does not utilize any source of DME to assist with ambulation. Patient is independent with all ADLs. Choice of pharmacy is [facility]. PCP is Amarjit Bailey. Patient reports he does have HX of Depression and does take medication for it, however does not remember the name of the medication. Patient is pending Crisis evaluation once medically cleared. Discharge Plan: Pending Next of kin: Life partner Sophie Salazar
--- NOTE | 2025-09-01 10:02 | PC.SS ---
Patient Redd Griffin is a 65 Year old male admitted for Symptomatic Bradycardia. SS met with patient at bedside to discuss discharge plan and verify demographic information. Patient reports he lives at home with his , Trupti Griffin who he reports is his surrogate decision maker, [phone]. Patient reports he does not utilize any source of DME to assist with ambulation. Patient is independent with all ADLs. Choice of pharmacy is [id number]. PCP is Jacoby Holliday. Patient also follows up with [facility]. At time of discharge patient will discharge home, will provide transportation Discharge Plan:Home Next of kin:, Trupti Griffin
[2025-09-01] MEDS: APIXABAN 2.5 MG TABLET 5 MG PO ×2 (10:13→20:50)
--- NOTE | 2025-09-01 10:47 | PC.SS ---
SS follow up note; Cardiology rec's pending. Patient will discharge home when medically cleared.
[2025-09-01] MEDS: ATORVASTATIN CALCIUM 20 MG TABLET PO (14:53)
--- NOTE | 2025-09-01 15:48 | PD.IMCONS ---
HPI Data of Consult Requesting Physician: Isaiah Claros MD Primary Care Provider: Jacoby Whalen MD Consult Narrative History of present illness: This is [id number] male with past medical history of atrial fibrillation status post ablation, pericardiectomy, history of left lower extremity DVT on Eliquis who presented to the ED due to symptomatic bradycardia. pt admitted with symptomatic bradycardia ; HR 30 pt had afib and ablation done was on atenolol 50 Prior cardiac w/u negative current HR 54 cc:: cc: Isaiah Claros MD Meds Home Medications and Allergies Home Medications ?Medication ?Instructions ?Recorded ?Confirmed ?Type amiodarone 200 mg tablet 200 mg PO BID 07/04/21 09/01/25 History furosemide 40 mg tablet 40 mg PO QDAY 06/23/22 09/01/25 History apixaban 5 mg tablet (Eliquis) 5 mg PO QDAY 09/01/25 09/01/25 History atenolol 25 mg tablet 25 mg PO QDAY 09/01/25 09/01/25 History atorvastatin 20 mg tablet 20 mg PO QDAY 09/01/25 09/01/25 History Allergies Allergy/AdvReac Type Severity Reaction Status Date / Time No Known Allergies Allergy Verified 08/31/25 23:00 Exam Vital Signs Temp Pulse Resp BP Pulse Ox O2 Del Method 97.0 F 54 L 20 120/64 95 Room Air 09/01/25 12:00 09/01/25 12:00 09/01/25 12:00 09/01/25 12:00 09/01/25 12:00 09/01/25 12:00 Routine HEENT Exam Head: Present normocephalic and atraumatic Eye: Present EOMI and PERRL ENT: Present mucous membranes moist Routine Neck Exam Neck: Present supple and trachea midline Routine Respiratory Exam Respiratory: Present chest non-tender, lungs clear, normal breath sounds and no resp distress Routine Cardiovascular Exam Cardiovascular: Present RRR Routine Abdominal Exam Abdominal: Present soft and normoactive bowel sounds Routine Extremities Exam Extremities: Present full ROM Routine Skin Exam Skin: Present intact, dry and warm Routine Neurological Exam Neurological: Present alert, oriented X3 and CN II-XII intact Routine Psychiatric Exam Psychiatric: Present normal affect and normal thought process Results Labs 09/01/25 04:25 09/01/25 08:10 Labs: Short CBC 08/31/25 09/01/25 Range/Units 23:20 04:25 WBC 8.8 7.7 (3.8-10.6) Thou/mm3 Hgb 12.3 L 12.2 L (13.5-16.0) g/dL Hct 38.7 L 39.6 L (41.0-53.0) % Plt Count 189 162 (140-440) Thou/mm3 BMP 08/31/25 09/01/25 09/01/25 23:20 04:25 08:10 Sodium 144 147 H Potassium 3.5 5.2 H D 4.3 D Chloride 107 109 H Carbon Dioxide 27.3 30.9 BUN 16 17 Creatinine 1.3 1.3 Glucose 106 104 Calcium 9.0 9.0 Cardiac Enzymes 08/31/25 Range/Units 23:20 Troponin I < 0.020 (0.0-0.045) ng/mL Liver Function 08/31/25 09/01/25 Range/Units 23:20 04:25 Total Bilirubin 0.6 0.8 (0.3-1.2) mg/dL AST 31 28 (0-34) U/L ALT 22 21 (10-49) U/L Alkaline Phosphatase 79 76 (46-116) U/L Albumin 4.0 3.7 (3.4-4.8) gm/dL Assessment and Plan Assessment and plan (1) Symptomatic bradycardia: Status: Acute (2) Dizziness: Status: Acute (3) Atrial fibrillation: Status: Acute Additional Assessment & Plan Additional Plan: afib ; s/p ablation admitted with bradycardia - symptomatic continue to hold atenolol if bradycardia persists then may need pacemaker ; hold amiodarone ; hold eliquis
[2025-09-02] VITALS (13 sets, daily range): BP systolic 102–132; BP diastolic 40–61; PULSE 39–112; RESP 12–26; TEMP 36.2–37; O2SAT 91–99; BMI 40.1
[2025-09-02 05:40] LABS: Basophils # (Auto) 0.0 Thou/mm3 (0.0-0.2); Basophils % (Auto) 0 % (0-2.5); Eosinophils # (Auto) 0.0 Thou/mm3 (0.0-0.5); Eosinophils % (Auto) 0 % (0-10); Hematocrit 37.8 % (41.0-53.0); Hemoglobin 11.6 g/dL (13.5-16.0); Immature Granulocytes Auto 0.03 Thou/mm3 (0.00-0.00); Lymphocytes # (Auto) 0.7 Thou/mm3 (1.0-4.8); Lymphocytes % (Auto) 7 % (10-50); Mean Corpuscular HGB Conc 30.7 g/dl (31.0-37.0); Mean Corpuscular Hemoglobin 27.4 pg (25.0-35.0); Mean Corpuscular Volume 89 fL (80-100); Monocytes # (Auto) 1.6 Thou/mm3 (0.0-0.8); Monocytes % (Auto) 16 % (0-12); Neutrophils # (Auto) 7.4 Thou/mm3 (1.8-7.7); Neutrophils % (Auto) 76 % (37-80); Nucleated Red Blood Cell # 0.00 Thou/mm3 (0.00-0.00); Nucleated Red Blood Cell % 0 /100 WBC (0); Platelet Count 136 Thou/mm3 (140-440); RDW Standard Deviation 44.0 fL (35.1-43.9); Red Blood Count 4.24 Miln/mm3 (4.50-5.90); White Blood Count 9.8 Thou/mm3 (3.8-10.6)
[2025-09-02 06:18] LABS: Alanine Aminotransferase 15 U/L (10-49); Albumin, Serum 3.6 gm/dL (3.4-4.8); Albumin/Globulin Ratio 1.7 (1.2-2.2); Alkaline Phosphatase 73 U/L (46-116); Anion Gap 10 (7-16); Aspartate Amino Transferase 19 U/L (0-34); BUN/Creatinine Ratio 14 Ratio (12-20); Bilirubin,Total 1.6 mg/dL (0.3-1.2); Blood Urea Nitrogen 17 mg/dL (9-23); Calcium 8.5 mg/dL (8.3-10.6); Calcium (Corrected) 8.8 mg/dL (8.5-10.1); Carbon Dioxide 28.3 mMol/L (20.0-31.0); Chloride 106 mMol/L (98-107); Creatinine (Component) 1.2 mg/dL (0.6-1.3); Estimated Creatinine Clearance 85.7 mL/min (>60); Globulin 2.1 gm/dL (2.3-3.5); Glucose 109 mg/dL (74-106); Magnesium 2.1 mg/dL (1.6-2.6); Osmolality,Calculated 289 (275-295); Phosphorous 3.0 mg/dL (2.4-5.1); Potassium 4.2 mMol/L (3.4-5.1); Sodium 144 mMol/L (136-145); Total Protein 5.7 gm/dL (5.7-8.2); eGFR > 60 See Note
[2025-09-02] MEDS: ALBUTEROL/IPRATROPIUM (Duoneb) RT SOL 3 ML NEBU INH (06:44)
--- NOTE | 2025-09-02 06:45 | PC.NURSE ---
Pt complained of chest tightness upon inhalation. Informed MD Melchor of pts complaint and recent O2 desaturation to 89 needing O2. Received orders for oxygen and a nebulizer treatment. O2 went up to 95% on 2L.
--- NOTE | 2025-09-02 08:03 | ESPR_ITS ---
Documentation for date of: 09/02/25 Senior resident attestation: Patient evaluated and examined at the bedside, plan of care discussed with rest of the team including my attending physician, except as noted. Patient's blood pressure and heart rate have been stable overnight, currently heart rate in the 50s, the patient did have 1 episode on transient hypoxia overnight, was started on 4 L nasal cannula oxygen, currently saturating well on 1 L nasal cannula O2, attempt to wean the patient off oxygen unsuccessful, will do oxygen walk test to determine home oxygen needs. #Bradycardia?history of A-fib, A-fib with SVR documented, likely secondary to beta-aparna use, atenolol held, heart rate improved. Spoke to hoop flaring machine operator Dr. Prater, no plans to pursue pacemaker at this point, recommended resuming patient's Eliquis. Patient will be discharged following oxygen walk test to determine oxygen needs, recommend withholding amiodarone and atenolol to be evaluated by hoop flaring machine operator on follow-up appointment. Quresh PGY3 Subjective Subjective Interval history: Patient was seen and examined at bedside. Overnight, patient desaturated to 84% on room air, and was placed on nasal cannula up to 4 L. [place] winded when asked to take deep breaths. Currently at 99% on 1 L; when O2 removed, desatted to high 80s. Nursing attempted to walk him as well; again desatted to high 80s. Exam Vital Signs Temp Pulse Resp BP Pulse Ox O2 Del Method O2 Flow Rate 98.6 F 50 L 18 121/40 L 99 Nasal Cannula 2 09/02/25 04:00 09/02/25 06:44 09/02/25 06:44 09/02/25 04:00 09/02/25 06:44 09/02/25 04:00 09/02/25 06:44 Narrative Exam General: A/O x3, no acute distress, well-nourished, well-developed, nasal cannula in place Eyes: PERRL, EOMI. Anicteric, vision grossly intact. Ears: No ear pain, no ear discharge, Hearing grossly intact. Nose: No nasal discharge. Mouth/Throat: Moist mucous membranes, no redness, no lesions. No goiter. Neck: Neck supple, non-tender, no cervical lymphadenopathy. Lungs: Clear KAYA to auscultation and percussion, No accessory muscle use. Cardio: Normal S1/S2, irregular rhythm, no murmurs, no JVD or carotid bruits. Abdomen: Soft, non-tender, no palpable masses, peristalsis present, no guarding or rebound. Extremities: significant bilateral swelling to above knee (worse on L), pitting 3+ edema to knee bilaterally, non-tender. Skin: No rashes, no lesions, warm to touch. Neuro: No focal neurological deficits. Psych: Cooperative, appropriate mood and effect. Objective Labs 09/03/25 04:45 09/03/25 04:45 Labs: Laboratory Results - last 24 hr 09/01/25 09/02/25 08:10 04:50 WBC 9.8 RBC 4.24 L Hgb 11.6 L Hct 37.8 L MCV 89 MCH 27.4 MCHC 30.7 L RDW Std Deviation 44.0 H Plt Count 136 L Neut % (Auto) 76 Lymph % (Auto) 7 L [place] % (Auto) 16 H Eos % (Auto) 0 Baso % (Auto) 0 Neut # (Auto) 7.4 Lymph # (Auto) 0.7 L [place] # (Auto) 1.6 H Eos # (Auto) 0.0 Baso # (Auto) 0.0 Immature Gran # (Auto) 0.03 H Absolute Nucleated RBC 0.00 Immature Gran % 0 Nucleated RBC % 0 Sodium 144 Potassium 4.3 D 4.2 Chloride 106 Carbon Dioxide 28.3 Anion Gap 10 BUN 17 Creatinine 1.2 Estim Creat Clear Calc 85.7 eGFR > 60 BUN/Creatinine Ratio 14 Glucose 109 H Calculated Osmolality 289 Calcium 8.5 Corrected Calcium 8.8 Phosphorus 3.0 Magnesium 2.1 Total Bilirubin 1.6 H D AST 19 ALT 15 Alkaline Phosphatase 73 Total Protein 5.7 Albumin 3.6 Globulin 2.1 L Albumin/Globulin Ratio 1.7 Quality Measures Quality Measures none Assessment & Plan Assessment Current Active Medications: Generic Name Dose Route Start Last Admin Trade Name Freq PRN Reason Stop Dose Admin Acetaminophen 650 mg 09/01/25 02:46 Acetaminophen 325 Mg Tablet PO 10/01/25 02:45 Q6H PRN Fever >100.4 Acetaminophen 650 mg 09/01/25 02:46 Acetaminophen 325 Mg Tablet PO 10/01/25 02:45 Q6H PRN PAIN SCALE 1-3 (mild Apixaban 5 mg 09/01/25 10:00 09/01/25 20:50 Apixaban 2.5 Mg Tablet PO 09/22/25 09:59 5 mg On Hold: 09/02/25 07:08 BID BARB Administration Atorvastatin Calcium 20 mg 09/01/25 14:45 09/01/25 14:53 Atorvastatin Calcium 20 Mg Tablet PO 10/01/25 14:44 20 mg HS BARB Administration Atropine Sulfate 1 mg 09/01/25 04:04 Atropine Sulf Inj 0.1 Mg/Ml Syr 10 Ml IV Q1HR PRN BRADYCARDIA Furosemide 40 mg 09/01/25 09:00 09/01/25 10:13 Furosemide 40 Mg Tablet PO 10/01/25 08:59 40 mg QDAY BARB Administration Ondansetron HCl 4 mg 09/01/25 02:46 Ondansetron Inj 2 Mg/Ml Inj 2 Ml IVP 10/01/25 02:45 Q6H PRN NAUSEA OR VOMITING Protocol Sennosides 1 tab 09/01/25 02:46 Senna Tablet PO 10/01/25 02:45 QDAY PRN constipation Protocol Plan 65-year-old male with past medical history of atrial fibrillation status post ablation, pericardiectomy, history of left lower extremity DVT on Eliquis, hyperlipidemia, who presented to the ED due to low heart rate with associated lightheadedness, tunnel vision, nausea. Admitted for symptomatic bradycardia. #Symptomatic bradycardia #Sinus Bradycardia #History of left lower extremity DVT #CHF exacerbation #Hyperkalemia #Hx of A.Fibrillation s/p ablation Patient presented with heart rate in the 30s, lightheadedness, nausea, tunnel vision, denies any loss of consciousness As noted on EKGs first 1 showing sinus bradycardia with first-degree heart block, second EKG shows atrial fibrillation with slow ventricular response, negative troponins, mildly elevated BNP Patient states he had cardiac workup done including echocardiogram and stress test both found to be within normal limits. Patient does have bilateral lower extremity swelling up to the midshin takes Lasix and spironolactone at home In the ED patient received glucagon and atropine, current heart rate 40-50 bpm 09-02-25- Patient placed on 1L O2; without (or with activity), O2 saturation falls to high 80s Plan: ? Hold beta-blockers at this time ? Hold amiodarone in the setting of bradycardia in the low 30s ? Atropine 1 mg as needed, if symptomatic with heart rate less than 40 ? furosemide increased to 40 IV BID - Fluid restriction (1200ml) ? Hold home Spirinolactone for Hyperkalemia ? Monitor telemetry ? Keep K> 4, Mg> 2 ? Hold eliquis at this time ? Consulted cardiology, thank you for recs #Hyperthyroid state TSH- 0.02; Free T4- 2.64 Plan: Will reassess on discharge once current illness resolves #Hyperlipidemia Plan: Continue home atorvastatin Health maintenance: Disposition: Admitted DVT prophylaxis: SCDs Diet: Diabetic low carbohydrate IV access: PIV CODE STATUS: Full code This case was discussed with my attending physician, Dr. Claros, and senior resident, Dr. Acevedo. Lio Mcgrath MD-PhD, PGY1 Attending Provider Attestation/Addendum I have examined the patient, reviewed labs and imaging findings, discussed the case with the resident(s), and reviewed entered orders. I agree with the plan of care as outlined in this note, with these additional summaries/recommendations: Patient seen at bedside. No acute overnight events. Patient admitted for symptomatic bradycardia. Patient remains bradycardic this morning with heart rates trending between 38 and 50s. At its lowest heart rate reached 33 bpm. Most likely patient's bradycardia is medication induced from atenolol +/- amiodarone. Will continue to hold these medications. We will hold Eliquis per cardiology recommendations. Patient was placed on oxygen overnight and appears to have developed CHF exacerbation. Start IV diuresis and fluid restriction. Wean supplemental oxygen as tolerated. Patient may require home O2. TSH 0.02 and free T42.64 Suggestive of hyperthyroidism. Thyroid studies may be altered given patient's symptoms. Recommend repeating thyroid studies in 4 to 6 weeks and initiating hyperthyroid medicines if indicated. Patient and patient's son updated on the plan and in agreement. All questions answered to satisfaction. Please see residents note for additional details and management. Dr. Harlan MD
--- NOTE | 2025-09-02 11:36 | PC.SS ---
Rounding: Pending Dr. Monroy, receiving specialist recs. for possible pacemaker.
[2025-09-02] MEDS: FUROSEMIDE INJ 10 MG/ML 4ML VIAL 40 MG IVP (17:45)
[2025-09-02] MEDS: ATORVASTATIN CALCIUM 20 MG TABLET PO (20:50)
[2025-09-03] VITALS (9 sets, daily range): BP systolic 106–119; BP diastolic 47–94; PULSE 47–105; RESP 19–22; TEMP 36.2–36.6; O2SAT 95–97
[2025-09-03] MEDS: FUROSEMIDE INJ 10 MG/ML 4ML VIAL 40 MG IVP (05:28)
[2025-09-03 05:33] LABS: Basophils # (Auto) 0.0 Thou/mm3 (0.0-0.2); Basophils % (Auto) 0 % (0-2.5); Eosinophils # (Auto) 0.1 Thou/mm3 (0.0-0.5); Eosinophils % (Auto) 1 % (0-10); Hematocrit 35.3 % (41.0-53.0); Hemoglobin 11.1 g/dL (13.5-16.0); Immature Granulocytes Auto 0.04 Thou/mm3 (0.00-0.00); Lymphocytes # (Auto) 0.9 Thou/mm3 (1.0-4.8); Lymphocytes % (Auto) 12 % (10-50); Mean Corpuscular HGB Conc 31.4 g/dl (31.0-37.0); Mean Corpuscular Hemoglobin 27.7 pg (25.0-35.0); Mean Corpuscular Volume 88 fL (80-100); Monocytes # (Auto) 1.5 Thou/mm3 (0.0-0.8); Monocytes % (Auto) 18 % (0-12); Neutrophils # (Auto) 5.6 Thou/mm3 (1.8-7.7); Neutrophils % (Auto) 69 % (37-80); Nucleated Red Blood Cell # 0.00 Thou/mm3 (0.00-0.00); Nucleated Red Blood Cell % 0 /100 WBC (0); Platelet Count 118 Thou/mm3 (140-440); RDW Standard Deviation 43.8 fL (35.1-43.9); Red Blood Count 4.01 Miln/mm3 (4.50-5.90); White Blood Count 8.1 Thou/mm3 (3.8-10.6)
[2025-09-03 05:56] LABS: Alanine Aminotransferase 12 U/L (10-49); Albumin, Serum 3.3 gm/dL (3.4-4.8); Albumin/Globulin Ratio 1.6 (1.2-2.2); Alkaline Phosphatase 63 U/L (46-116); Anion Gap 9 (7-16); Aspartate Amino Transferase 19 U/L (0-34); BUN/Creatinine Ratio 14 Ratio (12-20); Bilirubin,Total 2.0 mg/dL (0.3-1.2); Blood Urea Nitrogen 15 mg/dL (9-23); Calcium 7.9 mg/dL (8.3-10.6); Calcium (Corrected) 8.5 mg/dL (8.5-10.1); Carbon Dioxide 31.4 mMol/L (20.0-31.0); Chloride 103 mMol/L (98-107); Creatinine (Component) 1.1 mg/dL (0.6-1.3); Estimated Creatinine Clearance 93.5 mL/min (>60); Globulin 2.1 gm/dL (2.3-3.5); Glucose 95 mg/dL (74-106); Magnesium 2.0 mg/dL (1.6-2.6); Osmolality,Calculated 285 (275-295); Phosphorous 2.7 mg/dL (2.4-5.1); Potassium 4.1 mMol/L (3.4-5.1); Sodium 143 mMol/L (136-145); Total Protein 5.4 gm/dL (5.7-8.2); eGFR > 60 See Note
--- NOTE | 2025-09-03 12:05 | PC.SS ---
Addendum entered by Kiesha De Jesus 09/03/25 15:54: SS spoke to RASHAD Rendon and Dr. Genao, pt did well on O2 test. no o2 needed. Safe to DC home. Original Note: Pt was identified as a DC today, per team pt will need O2. No O2 testing note charted. SS called RASHAD Rendon if she can do O2 test, so SS can order O2 for DC.
--- NOTE | 2025-09-03 14:30 | ESDS_ITS ---
Planned Discharge Date 09/03/25 DS: Providers Provider Date of admission: 09/01/25 02:46 Primary care physician: Jacoby Whalen MD Admitting Provider: Mae Turcios MD Attending Provider on Admission: Isaiah Claros MD Consults: 09/01/25 03:11 Consult to Cardiology Stat Comment: Consulting Provider: Carmelina Monroy Attending Provider on DC: Isaiah Claros MD Discharging Provider: Isaiah Claros MD DS: Diagnosis Problem List Completed Was Problem List Reviewed/Reconciled?: Yes Hospital Course Hospital Course Hospital course: 65-year-old male with past medical history as stated above who presented to the ED due to low heart rate with associated lightheadedness, tunnel vision, nausea. Admitted for symptomatic bradycardia. Patient recently restarted his atenolol prior to symptoms. At this time during admission his beta-blockers and amiodarone were held and he was given glucagon. Patient had a good chronotropic response to loss his hospital stay and cardiology was consulted as well. Patient did not require any doses of atropine or any other doses of glucagon. Patient's O2 sats did drop overnight on his second night of the hospital stay and his O2 was increased to 4 L, but since then he had been saturating well. Walking test showed that patient's O2 was 90% and above therefore at this time patient will not need any home O2. Patient's chest x-ray that shows some pleural disease of the right base, recommended to follow-up outpatient with pulmonology. Patient remained stable throughout the hospital stay and at the ti me of discharge was stable enough to be discharged home. Discharge plan: We have held your home meds Amiodarone and Atenolol , due to risk of slowed heart rate, Please Resume Amiodarone and Atenolol only after talking to your Copying Machine Mechanic. Discuss with stylist apprentice possibility of increasing furosemide dose. Can continue taking the Eliquis for now. See Copying Machine Mechanic Dr Monroy within 5 days of discharge from hospital. Follow up with Primary care physician with labs within 3-5 days of discharge. Recommend follow-up with biotechnician as outpatient for possible pleural disease. If symptoms persist or worsen, return to the Emergency Department. Problem list: #Symptomatic bradycardia #Sinus Bradycardia #History of left lower extremity DVT #CHF exacerbation #Hyperkalemia #Hx of A.Fibrillation s/p ablation #Hyperthyroid state #Hyperlipidemia Case disclosed with Attending Dr. Harlan Crowley PGY2 Disclaimer: Even though this this note was dictated by speech recognition and even though it was carefully revised there may still be minor errors in canteen manager due to voice recognition software. Time Spent with Patient Time attestation: Total time spent providing and/or coordinating discharge services:>30 min Time spent: Greater than 30 minutes Exam Vital Signs Temp Pulse Resp BP Pulse Ox O2 Del Method O2 Flow Rate 97.1 F 51 L 19 106/51 L 95 Nasal Cannula 2 09/03/25 12:00 09/03/25 12:00 09/03/25 12:00 09/03/25 12:00 09/03/25 12:00 09/03/25 12:00 09/03/25 12:00 Narrative Exam General: A/O x3, no acute distress Eyes: PERRL, EOMI. Anicteric, vision grossly intact. Ears: No ear pain, no ear discharge, Hearing grossly intact. Nose: No nasal discharge. Mouth/Throat: Moist mucous membranes, no redness, no lesions. Neck: Neck supple, non-tender, no cervical lymphadenopathy. Lungs: Clear KAYA to auscultation and percussion, No accessory muscle use. Cardio: Normal S1/S2, regular rhythm, no murmurs, no JVD or carotid bruits. Abdomen: Soft, non-tender, no palpable masses, peristalsis present, no guarding or rebound. Extremities: Symmetrical, no significant deformities, 2+ peripheral edema , non-tender, peripheral pulses presents. Skin: No rashes, no lesions, warm to touch. Neuro: No focal neurological deficits. motor and sensory intact Psych: Cooperative, appropriate mood and effect. Discharge Plan Plan Patient Disposition: HOME (Self Care) Patient condition on transfer: Stable Care Plan Goals: We have held your home meds Amiodarone and Atenolol , due to risk of slowed heart rate, Please Resume Amiodarone and Atenolol only after talking to your Copying Machine Mechanic. Discuss with stylist apprentice possibility of increasing furosemide dose. Can continue taking the Eliquis for now. See Copying Machine Mechanic Dr Monroy within 5 days of discharge from hospital. Follow up with Primary care physician with labs within 3-5 days of discharge. Recommend follow-up with biotechnician as outpatient for possible pleural disease. Recommend outpatient follow up with endocrinology or your primary care physician to reassess thyroid function. If symptoms persist or worsen, return to the Emergency Department. Prescriptions/Referrals Prescriptions/Med Rec: Continued furosemide 40 mg tablet 40 mg PO QDAY Patient Comments: TAKE 1 TABLET BY MOUTH EVERY DAY atorvastatin 20 mg tablet 20 mg PO QDAY Patient Comments: TAKE 1 TABLET BY MOUTH EVERYDAY AT BEDTIME Eliquis 5 mg tablet 5 mg PO BID Qty: 30 0RF Rx Instructions: 10 mg twice a day for 7 days and then 5 mg tablet twice a day. Please see your primary care for refill. Held amiodarone 200 mg Tablet 200 mg PO BID Hold Instructions: Resume on 09/08/25. Please Resume Amiodarone and Atenolol after talking to your Copying Machine Mechanic. atenolol 25 mg tablet 25 mg PO QDAY Hold Instructions: Resume on 09/08/25. Please Resume Amiodarone and Atenolol after talking to your Copying Machine Mechanic. Patient Comments: TAKE 1 TABLET BY MOUTH EVERY DAY Referrals: Carmelina Monroy MD [Physician, Cardiology] Jacoby Whalen MD [Primary Care Provider, Nephrology] Patient/Caregiver Discharge Instructions Other Discharge Activity Instructions:: We have held your home meds Amiodarone and Atenolol , due to risk of slowed heart rate, Please Resume Amiodarone and Atenolol only after talking to your Copying Machine Mechanic. Discuss with stylist apprentice possibility of increasing furosemide dose. Can continue taking the Eliquis for now. See Copying Machine Mechanic Dr Monroy within 5 days of discharge from hospital. Follow up with Primary care physician with labs within 3-5 days of discharge. Recommend follow-up with biotechnician as outpatient for possible pleural disease. Recommend outpatient follow up with endocrinology or your primary care physician to reassess thyroid function. If symptoms persist or worsen, return to the Emergency Department. Education Materials: Your Heart's Electrical System, Understanding Bradycardia Print Language: Mosotho Stand Alone Forms: Allyson Award Info., Patient Portal Info Letter Discharge Order Discharge Orders: Discharge (Routine); Ordered 09/03/25 Ordered By: Cehster Crowley Quality Discharge Quality Measures VTE prophylaxis MD Attestestation MD Attestation I have examined the patient, reviewed labs and imaging findings, discussed the case with the resident(s), and reviewed entered orders. I agree with the plan of care as outlined in this note. Time Spent: [address] Harlan MD
== END 2025-09-03 15:36 | disposition home or self-care (01) | DRG 310 ==
LOC: SERX 09-01 00:24 → SERHOLD 09-01 02:56 → S2NX 09-01 06:55
PROVIDERS: Student in an Organized Health Care Education/Training Program; Admitting Provider Student in an Organized Health Care Education/Training Program; Emergency Provider Emergency Medicine; PCP Internal Medicine; Visit Provider Student in an Organized Health Care Education/Training Program
DX: R00.1 Bradycardia, unspecified (principal); I44.0 Atrioventricular block, first degree; I48.91 Unspecified atrial fibrillation; E78.5 Hyperlipidemia, unspecified; R09.02 Hypoxemia; E05.90 Thyrotoxicosis, unspecified without thyrotoxic crisis or storm; E87.5 Hyperkalemia; Z86.718 Personal history of other venous thrombosis and embolism; Z79.01 Long term (current) use of anticoagulants; Z79.899 Other long term (current) drug therapy
CPT/HCPCS: 36415; 71045; 80053; 80061; 83036; 83735; 83880; 84100; 84132; 84439; 84443; 84484; 85025; 93005; 94640; 94664; 94762; 96374; 96375; 99284; A9270; J0461; J1611; J1938; J2405

== ENCOUNTER 2025-10-20 07:10 | Day surgery (SDC) | payer BC, SELFPAY ==
[2025-10-18 09:10] VITALS: BMI 37.9
--- NOTE | 2025-10-19 07:00 | EKG_ITS ---
[facility] Test Date: 2025-10-19 Pat Name: MANISH YODER Department: Room: - Gender: Male Ui Software Developer: MINESH : 1960 Requested By: Carmelina Monroy Order Number: [id number] Reading MD: Carmelina Monroy Measurements Intervals [place] Rate: 53 P: MT: QRS: 7 QRSD: 163 T: 63 QT: 517 QTc: 489 Interpretive Statements SINUS BRADYCARDIA WITH 2ND DEGREE AV BLOCK, MOBITZ TYPE II RIGHT BUNDLE BRANCH BLOCK [120+ ms QRS DURATION, UPRIGHT V1, 40+ ms S IN I/aVL/V4/V5/V6] Compared to ECG 09/01/2025 02:10:09 Right bundle-branch block now present Atrial fibrillation no longer present T-wave abnormality no longer present Prolonged QT interval no longer present /store/[id number].pdf
[2025-10-19 10:33] LABS: Basophils # (Auto) 0.0 Thou/mm3 (0.0-0.2); Basophils % (Auto) 0 % (0-2.5); Eosinophils # (Auto) 0.1 Thou/mm3 (0.0-0.5); Eosinophils % (Auto) 2 % (0-10); Hematocrit 40.9 % (41.0-53.0); Hemoglobin 12.3 g/dL (13.5-16.0); Immature Granulocytes Auto 0.01 Thou/mm3 (0.00-0.00); Lymphocytes # (Auto) 0.9 Thou/mm3 (1.0-4.8); Lymphocytes % (Auto) 19 % (10-50); Mean Corpuscular HGB Conc 30.1 g/dl (31.0-37.0); Mean Corpuscular Hemoglobin 25.9 pg (25.0-35.0); Mean Corpuscular Volume 86 fL (80-100); Monocytes # (Auto) 0.7 Thou/mm3 (0.0-0.8); Monocytes % (Auto) 14 % (0-12); Neutrophils # (Auto) 3.2 Thou/mm3 (1.8-7.7); Neutrophils % (Auto) 64 % (37-80); Nucleated Red Blood Cell # 0.00 Thou/mm3 (0.00-0.00); Nucleated Red Blood Cell % 0 /100 WBC (0); Platelet Count 170 Thou/mm3 (140-440); RDW Standard Deviation 44.0 fL (35.1-43.9); Red Blood Count 4.74 Miln/mm3 (4.50-5.90); White Blood Count 4.9 Thou/mm3 (3.8-10.6)
[2025-10-19 10:39] LABS: Anion Gap 7 (7-16); BUN/Creatinine Ratio 11 Ratio (12-20); Blood Urea Nitrogen 13 mg/dL (9-23); Calcium 9.2 mg/dL (8.3-10.6); Carbon Dioxide 30.0 mMol/L (20.0-31.0); Chloride 109 mMol/L (98-107); Creatinine (Component) 1.2 mg/dL (0.6-1.3); Estimated Creatinine Clearance 83.2 mL/min (>60); Glucose 102 mg/dL (74-106); Osmolality,Calculated 290 (275-295); Potassium 4.5 mMol/L (3.4-5.1); Sodium 146 mMol/L (136-145); eGFR > 60 See Note
[2025-10-19 10:42] LABS: INR 1.1 (0.9-1.3); Partial Thromboplastin Time 26.5 Seconds (22.0-36.0); Prothrombin Time 11.9 Seconds (9.0-12.2)
[2025-10-20] VITALS (8 sets, daily range): BP systolic 107–129; BP diastolic 46–73; PULSE 66–107; RESP 17–22; TEMP 36.7–36.8; O2SAT 96–99
--- NOTE | 2025-10-20 08:35 | ESOP_ITS ---
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 Therefore we decided to proceed with permanent pacemaker placement Procedure This was done in the cardiac lab under continue electrocardiographic monitoring intermittent blood pressure monitoring Left subclavian access was obtained using modified Seldinger technique with a micropuncture needle Subsequently 6 [place] sheath was placed through the sheath ventricular lead Diana lance was placed Through the retained guidewire a second venous sheath was placed through the venous sheath atrial lead was placed in the appendage of the right atrium and with this was a screw-in lead Parameters Ventricular lead serial number [id number] Atrial lead serial #[id number] RV lead threshold 0.8 V at 0.4 ms, impedance 644 ohms, R wave 6.1 mV RA lead threshold was not done patient is in atrial fibs, 488 ohms, flutter waves 1.8 mV Generator serial #[id number] Both leads were connected to the device The device was securely placed in the pocket Pocket was flushed with antibiotic solution Subcutaneous tissue was sutured with 2-0 Vicryl Skin was secured with Dermabond
--- NOTE | 2025-10-20 09:00 | XR_ITS ---
EXAMINATION: AP chest single view TECHNIQUE: AP semiupright portable chest single view Date and time: October 20, 2025, 0912 hours, comparison August 31, 2025 INDICATIONS: Postop pacemaker insertion today FINDINGS: Film is underpenetrated Moderate enlargement cardiac contour prominent vascular congestion Edema and/or pneumonia at the right lung base with moderate right pleural fluid No pneumothorax Cardiac leads satisfactory position IMPRESSION: Cardiac leads satisfactory position
== END 2025-10-20 10:31 | disposition home or self-care (01) ==
PROVIDERS: PCP Internal Medicine; Referring Provider Internal Medicine; Visit Provider Internal Medicine
PROC: (CPT 33208; principal; 2025-10-20 07:30)
DX: I49.5 Sick sinus syndrome (principal); I48.0 Paroxysmal atrial fibrillation; Z82.49 Family history of ischemic heart disease and other diseases of the circulatory system; E66.9 Obesity, unspecified; Z68.37 Body mass index [BMI] 37.0-37.9, adult; Z01.810 Encounter for preprocedural cardiovascular examination; I10 Essential (primary) hypertension
CPT/HCPCS: 33208; 36415; 80048; 85025; 85610; 85730; 93005; 99152; 99153; A4565; A4649; C1721; C1894; C1898; J0153; J0168; J0282; J0461; J0689; J2250; J2312; J2371; J3010; J3490